=== PATIENT | female | born 1990 | race Caucasian/White ===

== ENCOUNTER → 2018-09-10 08:54 | Outpatient (CLI) | payer OTHER, SELFPAY ==
[2018-09-14 12:48] LABS: HPV Reflexed? NOT INDICATED
== END ==
PROVIDERS: Visit Provider Obstetrics & Gynecology
DX: Z12.4 Encounter for screening for malignant neoplasm of cervix (principal)
CPT/HCPCS: 88175; G0145

== ENCOUNTER → 2022-05-10 | Outpatient (CLI) | payer OTHER, SELFPAY ==
[2022-05-10 17:59] LABS: Absolute Lymphocyte Count 2.51 X10^3/uL (0.83-4.51); Absolute Neutrophil Count 7.3 X10^3/uL (2.0-7.7); Basophil# 0.03 X10^3/uL; Basophil% 0.3 % (0-1); Eosinophil# 0.09 X10^3/uL; Eosinophils% 0.8 % (0-5); Hematocrit 43.8 % (37-47); Hemoglobin 13.9 g/dL (12.0-15.0); Lymphocyte # 2.51 X10^3/ul (0.83-4.51); Lymphocyte % 23.4 % (19-41); Mean Corp Hgb Conc 31.7 g/dL (32-36); Mean Corpuscular Hgb 28.4 pg (27.0-32.0); Mean Corpuscular Volume 89.4 fL (81-99); Mean Platelet Vol. 10.2 fl (6.2-12.0); Monocyte# 0.83 X10^3/uL; Monocyte% 7.7 % (0-10); NRBC Flagged by Analyzer 0 % (0-5); Neutrophil # 7.25 X10^3/uL (2.7-7.7); Neutrophil % 67.5 % (47-70); Platelet Count 247 K/mm3 (150-450); RBC Distribution Width CV 12.8 % (11.6-14.6); RBC Distribution Width SD 41.6 fl (35.1-43.9); White Blood Count 10.7 K/mm3 (4.4-11.0)
[2022-05-10 18:40] LABS: Hemoglobin A1c 4.9 % (3.8-5.6)
[2022-05-10 18:58] LABS: ALB/GLOB Ratio 1.2 RATIO (0.9-2.4); AST(SGOT) 15 U/L (15-37); Alanine Aminotransfer ALT/SGPT 31 U/L (13-56); Albumin, Serum 4.1 g/dL (3.2-5.0); Alkaline Phosphatase 98 U/L (45-117); Anion Gap 10 (5-15); BUN 10 mg/dL (7-18); BUN/Creat Ratio 18.1 RATIO (10-20); Calcium,Total 8.9 mg/dL (8.5-10.1); Chloride 107 mmol/L (98-107); Cholesterol 155 mg/dL (200); Creatinine, Serum 0.55 mg/dL (0.55-1.02); EST Glomerular Filtration Rate 135 mL/min (>60); Est Glom Filt Rate - Afr Amer 163 mL/min (>60); Globulin 3.5 g/dL (2.2-4.2); Glucose 67 mg/dL (74-106); High Density Lipoprotein 45 mg/dL; Potassium 3.5 mmol/L (3.5-5.1); Protein, Total 7.6 g/dL (6.4-8.2); Sodium Level 142 mmol/L (136-145); Thyroid Stim Hormone (TSH) 0.76 uIU/mL (0.358-3.74); Triglycerides 76 mg/dL; Very Low Density Lipoprotein 15 mg/dL (5-40)
== END | disposition home or self-care (01) ==
LOC: MFPLAB 14:54
PROVIDERS: PCP Family Medicine; Visit Provider Family Medicine
DX: Z00.00 Encounter for general adult medical examination without abnormal findings (principal); Z13.0 Encounter for screening for diseases of the blood and blood-forming organs and certain disorders involving the immune mechanism; Z13.1 Encounter for screening for diabetes mellitus; Z13.220 Encounter for screening for lipoid disorders; Z13.228 Encounter for screening for other metabolic disorders
CPT/HCPCS: 36415; 80053; 80061; 83036; 84443; 85025

== ENCOUNTER 2022-06-20 09:50 | Day surgery (SDC) | payer OTHER, SELFPAY ==
[2022-06-20 10:23] LABS: Internal QC Validated? YES +Cl - CLEAR BKGD; Pregnancy, Urine Negative Negative
[2022-06-20 10:36] VITALS: BP 123/78; PULSE 88; RESP 16; TEMP 37.3; O2SAT 99; BMI 33.7
[2022-06-20] MEDS: Lactated Ringers 1,000 ML 15 ML IV (10:40)
[2022-06-20 10:47] LABS: Hemoglobin 13.2 g/dL (12.0-15.0); Mean Corp Hgb Conc 32.2 g/dL (32-36); Mean Corpuscular Hgb 28.6 pg (27.0-32.0); Mean Corpuscular Volume 88.7 fL (81-99); Mean Platelet Vol. 10.1 fl (6.2-12.0); Platelet Count 202 K/mm3 (150-450); RBC Distribution Width SD 42.4 fl (35.1-43.9); Red Blood Count 4.62 M/mm3 (4.2-5.4); White Blood Count 5.8 K/mm3 (4.4-11.0)
--- NOTE | 2022-06-20 11:34 | PCM.HP.BLA ---
History and Physical Date of Admission: 06/20/22 Vital Signs ? 05/31/1599:55 05/03/2312:50 05/03/2312:53 Height 5 ft 5 in 5 ft 5 in 5 ft 5 in Weight: ? ? 205 lb 4 oz BMI ? ? 34.1 BP ? ? 118/79 Intake Visit Reasons:?TUBAL CONSULT Real Estate Administrative Assistant Required: No Is patient in pain?: No Allergies Penicillins [PCN] Allergy (Verified 05/03/22 13:54) Hives Medications NK? 05/03/22 [History Confirmed 05/03/22] Post menopausal: No Patient : No : No PFSH Medical History?(Updated 05/03/22 @ 14:[address] Frances Martin, DO) Idiopathic thrombocytopenia purpura Family History?(Updated 05/03/22 @ 13:55 by Ginger Reynoso) Grandfather Primary cancer of bone marrow HyperlipidemiaFather DiabetesGrandmother Diabetes CVA (cerebral vascular accident) Breast cancer Social History?(Updated 05/03/22 @ 13:56 by Ginger Reynoso) Smoking Status:? Never smoker alcohol intake:? never substance use type:? does not use what type of physical activity do you participate in:? none additional social history:? -Cj ? HPI TUBAL CONSULT Details: HANK CARMONA is a 31 year old ? who presents for tubal ligation consultation. She has 2 children and states that she is ready to be permanently done with child bearing. Her does not want a vasectomy. History ? ? ? 2 ? Elective abortions ? Hx Para ? ? ? 2 ? Spontaneous abortions ? Hx # Term Pregnancies ? Ectopic pregnancies ? Hx # Pregnancies ? Multiple births ? # of living children ? Past Pregnancies Del. Date Name GA/Weeks Outcome Route Bth Weight Gen Labor Lgth Anesthesia Del Locatn Provider FOB Unknown Rylynn ? Unknown Shaye ? ROS Const ROS Unobtainable: All systems reviewed & are unremarkable except as noted in H Resp Resp: Reports system reviewed and no additional complaints, except as documented; Denies cough GI GI: Reports as per HPI Psych Psych: Reports system reviewed and no additional complaints, except as documented Exam Const General: cooperative, healthy appearing, comfortable and no acute distress Resp Effort & Inspection: normal respiratory effort Skin General: no rashes or lesions noted Psych Appearance: grossly normal Speech and Movement: speech and movement normal Coding Level of Care Code Off vis,new,level 4 Diagnoses Sterilization consult? Z30.09 Assessment and Plan Assessment and Plan (1) Sterilization consult: ?Status:?Acute ?Plan: After discussing the patient's diagnosis and treatment plan options, patient wishes to proceed with surgical management.? I have discussed with the patient the risks, benefits, and alternatives of the procedure which include but are not limited to risks of anesthesia, bleeding, infection, possible damage to bowel, bladder, or surrounding vasculature which could lead to additional surgery to evaluate any complications.? Patient agrees to procedure and wishes to proceed.? ACOG/uptodate references given for additional information regarding procedure.? plan for laparoscopic bilateral salpingectomy
--- NOTE | 2022-06-20 11:35 | FALS_PTH ---
PATIENT: HANK CARMONA LOC: [facility] – [place] U#:[id number] AGE/SX: 31/F ROOM: RE06/20/[address]: Dr. Frances Martin DO : 1990 BED: DIS: 06/20/2022 SPEC #: [id number] RECD: 06/20/22 16:25 STATUS: HAI CHANLilo #: [id number] JAMES: 06/20/22 11:[address]: Frances Martin DEPT: SURGICAL PATHOLOGY RECD BY: Will Kohli ENTERED: 06/21/22 12:13 SP TYPE: FALL TUBES OTHR DR: Danielle Gage DO Tissues: Fallopian tube Procedures: Surgery Specimen Level II HEADER OPERATION: Laparoscopic salpingectomy PRE-OP DIAGNOSIS: Sterilization TISSUE SUBMITTED: Bilateral fallopian tubes MICROSCOPIC DIAGNOSIS Bilateral fallopian tubes, salpingectomy: Bilateral fallopian tubes, no pathologic diagnosis. SJ:laron 06/22/2022 MICROSCOPIC DESCRIPTION Slides are reviewed. GROSS DESCRIPTION Received in fixative is one container labeled with the patient's name and designated bilateral fallopian tubes. The specimen consists of bilateral fallopian tubes including fimbrial ends each measuring 5.0 cm in length and 0.5 cm in diameter. The fallopian tubes are not identified as right or left. Sections reveal unremarkable cut surfaces. Armoured Car Escort sections are submitted in two cassettes with each cassette containing one fallopian tube. / LUDWIG:laron 06/21/2022 TC:4 CPT: 03604 x2
--- NOTE | 2022-06-20 11:42 | DCINST_ITS ---
Discharge Instructions Diet Discharge Diet: No restrictions Activity Discharge Activity: Return to Normal Activity, May Not Drive (for two weeks or while taking narcotic pain medications.), May Shower and May Take a Tub Bath (in 7 days) May resume sexual activity in: 1 week Weight Bearing Status: Full weight bearing Dressing / Incision Call your doctor if you observe: Using more than 1 pad per hour, Shortness of breath, Chest pain and Uncontrolled pain Suture Line Care: Avoid Pulling/Pushing and Avoid Pinching/Bending Remove Dressing in: 1 week (if present) Cleanse incision/area with: Soap & Water and Keep Dressing Clean & Dry Follow Up Care Please Follow Up With: Frances Martin DO When: Call to make an appointment with your doctor for a follow up incision check in 1-2 weeks. Test Results: Test results from this visit will be discussed in further detail at your follow- up appointment, if applicable. Discharge Plan Admission Primary Reason for Your Visit: laparoscopic salpingectomy Attending Provider: Frances Martin Primary Care Provider: Danielle Gage Discharge Orders/Prescriptions Prescriptions: New oxycodone-acetaminophen [Percocet] 5-325 mg tablet 1 tab PO Q4H PRN (Reason: pain) 7 Days Qty: 12 0RF Rx Instructions: 1-2 tabs q 4 hrs as needed for pain naproxen 500 mg tablet 500 mg PO BID PRN (Reason: pain) Qty: 15 0RF Referrals / Follow Up: Danielle Gage DO [Primary Care Provider] - Disposition Disposition (needs filled in before D/C Order can be placed): Home, Self Care
[2022-06-20] MEDS: Bupivacaine 0.25% 30 ML Vial (12:13)
--- NOTE | 2022-06-20 12:39 | PCM.OP.BLANK ---
Operative Report Date of Procedure: 06/20/22 preoperative diagnosis: desires permanent sterilization Postoperative diagnosis: Desires permanent sterilization Procedure: Laparoscopic bilateral salpingectomy Surgeon: Dr. Frances Hernandez DO Classification Inspector: GUILLERMO Wright Estimated blood loss: 5 cc Urine output: 100 cc Fluids: 1300 cc Details of the procedure: Patient was brought to the operating room where general anesthesia was found to be adequate. She was prepped and draped in the normal sterile fashion her legs were placed in stirrups. A sponge stick was placed in the vagina. Gloves were changed. Attention was turned towards the abdomen. 0.75% Marcaine was injected into the umbilicus and a 5 mm incision was made with an 11 blade scalpel. A 5 mm trocar was inserted into the abdomen under direct visualization using the 5 mm laparoscope. A left lower quadrant 5 mm incision was also made followed by insertion of a 5 mm trocar. A right lower quadrant incision was made and a 5 mm trocar was then inserted under direct visualization. The uterus was elevated and manipulated to the right side the left fallopian tube was first grasped with a mini grasper and the underlying mesosalpinx was cauterized and cut to the level of the cornua using the LigaSure device. The fallopian tube was removed through the trocar. The same procedure was performed on the right side. both fallopian tubes were passed off for pathology analysis. Excellent hemostasis was noted at all operative sites. All instruments were removed from the abdomen and CO2 gas was escape from the abdomen. The skin was closed with a 4-0 Monocryl subcuticular stitch and sealed with surgical glue. The vaginal manipulator was removed and a vaginal sweep was performed no foreign objects were left in the vagina. The patient tolerated the procedure well sponge lap needle counts were correct x2 and she is now being brought to the recovery room in stable condition Complications: None Multi Select Codes Urinary/Genital Urinary/Genital CPT Codes: 27494 Laproscopic BS/O
[2022-06-20 12:40] VITALS: BP 120/87; BP 123/78; PULSE 93; RESP 16; TEMP 36.4; O2SAT 92
[2022-06-20 12:45] VITALS: BP 110/86; BP 123/78; PULSE 93; RESP 17; O2SAT 97
[2022-06-20 13:00] VITALS: BP 121/93; BP 123/78; PULSE 96; RESP 16; TEMP 36.2; O2SAT 99
[2022-06-20] MEDS: HYDROcodone Bitartrate/Apap 5/325 Tablet PO (13:46)
[2022-06-20 14:15] VITALS: BP 114/72; BP 123/78; PULSE 81; RESP 14; TEMP 36.7; O2SAT 95
== END 2022-06-20 14:58 | disposition home or self-care (01) ==
LOC: SDC 09:56 → AC 09:56
PROVIDERS: PCP Family Medicine; Referring Provider Obstetrics & Gynecology; Visit Provider Obstetrics & Gynecology
PROC: (CPT 58661; principal; 2022-06-20 11:20)
DX: Z30.2 Encounter for sterilization (principal)
CPT/HCPCS: 58661; 00840; 81025; 85027; 86850; 86900; 86901; 88302; J7120; J2405

== ENCOUNTER → 2022-11-30 | Outpatient (CLI) | payer OTHER, SELFPAY ==
--- NOTE | 2022-11-30 09:25 | BI_ITS ---
MAMMOGRAPHY - BILATERAL DIAGNOSTIC REASON FOR EXAM: Female, 32 years old. Left upper outer quadrant breast pain for 6 months. PERTINENT HISTORY: Grandmother with breast cancer. TECHNIQUE: Digital bilateral breast josep (3D mammographic acquisition) in the CC and MLO projections. 2-D mediolateral oblique (MLO) and craniocaudad (CC) views of both breasts were obtained. CAD: Full Field Digital Mammography with Computer Added Detection was performed. COMPARISON: None. Baseline examination. FINDINGS: Breast Composition: The breasts are heterogeneously dense, which may obscure small masses. There are no dominant masses or suspicious calcifications. No other significant abnormalities are identified. BI/DIAG MAMM W/CAD, BILAT IMPRESSION: Negative diagnostic mammogram. With the patient''s history of a pain in the upper outer quadrant of the left breast, correlation with targeted ultrasound is recommended. ASSESSMENT CATEGORY: BIRADS Category 0: Incomplete. Need additional imaging evaluation. A letter regarding these results will be sent to the patient by the facility within 30 days. Approximately 10% of breast cancers are not detected by mammography. A normal mammogram should not delay biopsy of a clinically suspicious abnormality. Electronically Signed: Dimitrios Huynh MD at 10:40 EDT ,
--- NOTE | 2022-11-30 09:25 | US_ITS ---
STUDY: ULTRASOUND BREAST - RIGHT REASON FOR EXAM: Female, 32 years old. Left breast pain. TECHNIQUE: Axial and longitudinal images of the RIGHT breast were performed with a high resolution ultrasound transducer. # OF IMAGES: 27 COMPARISON: Comparison is made with prior mammogram done earlier today. FINDINGS: RIGHT Breast: The upper outer quadrant of the left breast was examined with ultrasound. There is a 6 mm x 7 mm x 4 mm well-defined hypoechoic nodule at the 12:00 position of the breast at 3 cm from the nipple. This most likely represents adenoma although tissue diagnosis is recommended. US/Breast Limited Unilateral IMPRESSION: 6 mm x 7 mm x 4 mm well-defined hypoechoic nodule at the 12:00 position of the breast at 3 cm from the nipple. Biopsy is recommended. ASSESSMENT CATEGORY: BIRADS Category 4: Suspicious - Biopsy Should Be Considered. A letter regarding these results will be sent to the patient by the facility within 30 days. Electronically Signed: Dimitrios Huynh MD at 13:01 EDT ,
== END | disposition home or self-care (01) ==
LOC: OPBI 09:24
PROVIDERS: PCP Family Medicine; Referring Provider Nurse Practitioner Women's Health; Visit Provider Nurse Practitioner Women's Health
DX: N64.4 Mastodynia (principal)
CPT/HCPCS: 76642; 77062; 77066; G0279

== ENCOUNTER 2022-12-11 08:21 | Day surgery (SDC) | payer OTHER, SELFPAY ==
--- NOTE | 2022-12-11 | BRBX_PTH ---
PATIENT: HANK CARMONA [place] [facility] [id number] AGE/SX: 32/F ROOM: RE12/11/[address]: Dr. Raymond Beltrán MD : 1990 BED: DIS: 12/11/2022 SPEC #: [id number] RECD: 12/11/22 10:35 STATUS: HAI RELilo #: [id number] JAMES: 12/11/22 00:[address]: Raymond Beltrán DEPT: SURGICAL PATHOLOGY RECD BY: Oscar Martinez ENTERED: 12/11/22 10:36 SP TYPE: BREAST BX OTHR DR: Danielle Gage DO Tissues: Left breast, NOS Procedures: Surgery Specimen Level IV HEADER OPERATION: Left breast biopsy, ultrasound-guided NL PRE-OP DIAGNOSIS: Left breast mass, breast pain TISSUE SUBMITTED: Left breast mass MICROSCOPIC DIAGNOSIS Left breast mass, excisional biopsy: Fibroadenoma. AM/am 12/13/22 MICROSCOPIC DESCRIPTION Slides are reviewed. GROSS DESCRIPTION Received in fixative is one container labeled with the patient's name and designated left breast mass. The specimen consists of an irregular fragment of rollins-yellow fatty tissue measuring 4.0 x 2.8 x 2.0 cm and containing a metallic wire. No orientation is provided. The specimen is inked and serially sectioned to reveal homogenous yellow cut surfaces. No distinct mass lesion is identified. The specimen is totally submitted in six cassettes after additional fixation. / AM:laron 12/11/2022 TC:1 CPT:85266
--- NOTE | 2022-12-11 08:31 | PCM.HP.BLA ---
History and Physical Date of Admission: 12/11/22 Intake Vital Signs 11/22/2310:44 12/04/2306:53 Height 5 ft 5 in 5 ft 5 in Weight: 201 lb BMI 33.4 BP 134/88 H Blood Pressure Location Rt brachial Position Sitting Respiration 16 Intake Visit Reasons: Birads 4 Right Breast Chief Complaint: left breast mass and nodule Prefabricated Houses Trimmer Required: No Is patient in pain?: Yes (left breast) Allergies Penicillins [PCN] Allergy (Verified 12/04/22 07:54) Hives Medications NK 07/05/22 [History Confirmed 12/04/22] PFSH Medical History Breast pain Idiopathic thrombocytopenia purpura Non-smoker Restless legs Sterilization consult Wears glasses Surgical History Hx of wisdom tooth extraction Status post laparoscopy Family History Grandfather Primary cancer of bone marrow HyperlipidemiaFather DiabetesGrandmother Diabetes CVA (cerebral vascular accident) Breast cancer Social History Smoking Status: Never smoker alcohol intake: never substance use type: does not use what type of physical activity do you participate in: none additional social history: -Cj HPI HPI HPI: Patient notes he has been having left breast pain for about 6 months. She says it is constant but it does wax and wane but it does not coincide with her menstrual cycle. She has not noted any nipple discharge. ROS General General: Yes weight change and fatigue; No appetite, colon cancer, breast cancer or weakness HEENT HEENT: No difficulty swallowing, eye injury, eye surgery, swollen glands or hoarseness Endo Endocrine: No thyroid disease, diabetes mellitus, thyroid cancer, Hair loss, heat intolerance or cold intolerance Skin Skin: No rash or changing moles Breast Breast: No left breast lump, right breast lump, nipple discharge, breast pain, abnormal mammogram, abnormal US or breast enlargement Musc Musculoskeletal: No back problems, arthritis, rheumatoid arthritis, gout or joint pain Cardio Cardiovascular: No murmur, pacemaker, heart disease, atrial fibrillation, high blood pressure, heart attack, heart stent, palpitations, shortness of breat with exertion or chest pain Psych Psychiatric: No depression, anxiety or hearing voices Resp Respiratory: No shortness of breath, No sleep apnea, No cough, No COPD, No asthma, No emphysema and No wheezing Gastro Gastrointestinal: No abdominal pain, No nausea or vomiting, No diarrhea, No constipation, No blood in stool, No acid reflux, Yes hemorrhoids, No ulcers, No gallbladder problem and No black,tarry stools Uri Hematologic: No blood thinners, No blood disorders, No bleeding, No anemia and No blood clots Neuro Neurologic: No system reviewed and no additional complaints, except as documented, No as per HPI, No abnormal gait, No abnormal hearing, No abnormal movements, No abnormal speech, No behavioral changes, No burning sensations, No confusion, No convulsions, No disequilibrium, No dizziness, No localized weakness, No frequent falls, No headache(s), No lack of coordination, No loss of vision, No memory loss, No numbness, No other visual disturbances, No radicular pain, No restless legs, No sensory deficit, No syncope, No tingling, No tremor(s), No weakness and No other Exam Const General: cooperative Orientation: alert and oriented x3 HENMT Head: normal to inspection Neck Neck: normal visual inspection and full ROM Chest Chest palpation & inspection: normal inspection of the chest Resp Effort & Inspection: normal respiratory effort Auscultation: clear to auscultation bilaterally Cardio Rate: regular rate Rhythm: regular rhythm GI Inspection: non-distended Palpation: soft and nontender Skin General: no rashes or lesions noted Neuro General: patient alert and patient oriented x3 Extrem General: full ROM Psych Appearance: grossly normal Mental Status: mental status grossly normal Assessment and Plan Assessment and Plan (1) Breast pain: Status: Acute Comment: left/imaging Plan: Patient has been having left breast pain. She had an ultrasound which showed a small mass in the superior outer portion of the left breast. It was given a BI-RADS 4 score and recommended for biopsy. The patient notes that she is having discomfort in this area and I believe removing it entirely would alleviate her discomfort. I recommended excisional biopsy with ultrasound guided wire localization. I discussed the risks including but not limited to bleeding, infection, need for further surgery if this is cancerous. Patient understands the risks and is willing to proceed. Raymond Beltrán MD Pager: [facility] [address] [place] [address], [address] [place] [address] Office: I have examined the patient and the H&P has been reviewed. There are no clinical changes since date of exam.
[2022-12-11 08:40] VITALS: BP 122/91; PULSE 85; RESP 16; TEMP 36.7; O2SAT 100; BMI 33.3
[2022-12-11] MEDS: Lactated Ringers 1,000 ML 15 ML IV ×2 (08:40→10:18)
[2022-12-11] MEDS: Clindamycin 900 MG/50 ML BAG 75 MG IV (09:12)
[2022-12-11] MEDS: Bupivacaine Mpf 0.5% 30 ML VIAL (09:15)
--- NOTE | 2022-12-11 09:47 | OP.PCM_ITS ---
Report of Operation Date of Procedure: 12/11/22 Pre-Operative Diagnosis: Left breast mass Post-Operative Diagnosis: Left breast mass Surgery/Procedure Performed:: Left breast excisional biopsy with ultrasound- guided wire localization Type of Anesthesia: General/Regional Specimen's removed: Left breast mass Estimated Blood Loss (mL): 10 Description of Procedure: Patient was brought back to the operating room and general anesthesia was induced. The left breast was prepped and draped in usual sterile fashion. Ultrasound was used to visualize the mass and under direct ultrasound guidance a wire was placed into it. Next the incision was marked and injected with local anesthetic. Incision was made a scalpel and flaps were raised using electrocautery. The wire was followed to the mass and the area was excised using electrocautery dissection. Ultrasound was used to examine the specimen and it did contain the mass and the wire. It was sent for pathology. The cavity was irrigated and suctioned dry and hemostasis was maintained using electrocautery. The incision was closed with interrupted 3-0 Vicryl sutures and then Dermabond glue was applied. Patient was brought to PACU in stable condition and tolerated the procedure well. Admit VTE Documentation VTE Mechan Device Prophylaxis: SCD's
[2022-12-11 09:48] VITALS: BP 100/72; BP 122/91; PULSE 74; RESP 14; TEMP 35.8; O2SAT 93
--- NOTE | 2022-12-11 09:49 | DCINST_ITS ---
Discharge Instructions Diet Discharge Diet: No restrictions Activity Discharge Activity: May Not Drive (for 2-3 days or while taking narcotic pain medications.) and May Shower (tomorrow) Lifting Restrictions: 15 lbs for 3 days Dressing / Incision Call your doctor if your incision/area has: Continuous Slow Oozing, Sudden Increased Bleeding, Increased Pain/ Swelling, Increased Redness, Foul Smelling Discharge and Swelling at the incision site Call your doctor if you observe: Fever of 101 or Higher Suture Line Care: Avoid Pulling/Pushing and Avoid Pinching/Bending Cleanse incision/area with: Soap & Water Follow Up Care Please Follow Up With: Raymond Beltrán MD When: Please call to schedule 2 week follow up appointment. [phone] Test Results: Test results from this visit will be discussed in further detail at your follow- up appointment, if applicable. Discharge Plan Admission Attending Provider: Raymond Beltrán Primary Care Provider: Danielle Gage Instructions Additional Instructions / Restrictions: Ibuprofen for pain, Percocet for breakthrough Discharge Orders/Prescriptions Prescriptions: New oxycodone-acetaminophen [Percocet] 5-325 mg tablet 1 tab PO Q6H PRN (Reason: pain) 3 Days Qty: 5 0RF No Action cholecalciferol (vitamin D3) [Vitamin D3] 25 mcg (1,000 unit) tablet 2,000 unit PO DAILY loratadine [Allergy Relief (loratadine)] 10 mg tablet 10 mg PO DAILY PRN (Reason: allergic symptoms) Referrals / Follow Up: Danielle Gage DO [Primary Care Provider] - Disposition Disposition (needs filled in before D/C Order can be placed): Home, Self Care
[2022-12-11 10:00] VITALS: BP 118/82; BP 122/91; PULSE 87; RESP 18; O2SAT 96
[2022-12-11 10:14] VITALS: BP 117/86; BP 122/91; PULSE 75; RESP 18; TEMP 36.3; O2SAT 96
[2022-12-11 10:36] VITALS: BP 122/91
== END 2022-12-11 11:06 | disposition home or self-care (01) ==
LOC: SDC 08:21 → AC 08:23
PROVIDERS: PCP Family Medicine; Referring Provider Surgery; Visit Provider Surgery
PROC: (CPT 19083; principal; 2022-12-11 09:45)
DX: D24.2 Benign neoplasm of left breast (principal)
CPT/HCPCS: 19125; 00400; 88305; J7120; J2405

== ENCOUNTER → 2024-07-16 | Outpatient (CLI) | payer OTHER, SELFPAY ==
[2024-07-21 17:07] LABS: HPV APTIMA, High Risk Negative (Negative)
== END | disposition home or self-care (01) ==
LOC: LABSPEC 11:54
PROVIDERS: Referring Provider Obstetrics & Gynecology; Visit Provider Obstetrics & Gynecology
DX: Z12.4 Encounter for screening for malignant neoplasm of cervix (principal)
CPT/HCPCS: 87624; 88175; G0145

== ENCOUNTER → 2024-10-10 | Outpatient (CLI) | payer OTHER, SELFPAY ==
--- NOTE | 2024-10-10 09:45 | BI_ITS ---
EXAM: SCRN MAMM (CAD)W/RELL BILAT 10/10/2024 CLINICAL HISTORY: F, Age 34 y/o , SCREENING FOR MALIGNANT NEOPLASM OF THE BREAST TECHNIQUE: Bilateral screening digital breast tomosynthesis with 2D and 3D images. Computer aided detection. COMPARISON: Prior exam(s) dated 11/30/2022,. FINDINGS: TISSUE DENSITY: The breast tissue is composed of scattered area of fibroglandular density. Bilateral Breast Mammographic Findings: No significant masses, calcifications or other abnormalities are identified. BI/SCRN MAMM (CAD)W/RELL BILAT IMPRESSION: Right Breast: BIRADS 1 NEGATIVE. Left Breast: BIRADS 1 NEGATIVE. OVERALL FINAL ASSESSMENT: BIRADS 1 NEGATIVE. RECOMMENDATION: Routine annual follow-up in 1 Year A letter with findings and recommendations will be mailed to the patient. Reading Location: [id number]
== END | disposition home or self-care (01) ==
LOC: OPBI 09:37
PROVIDERS: PCP Nurse Practitioner Family; Referring Provider Obstetrics & Gynecology; Visit Provider Obstetrics & Gynecology
DX: Z12.31 Encounter for screening mammogram for malignant neoplasm of breast (principal)
CPT/HCPCS: 77063; 77067